=== PATIENT | male | born 1965 | race African-American/Black ===

== ENCOUNTER 2019-05-07 06:32 | Emergency (ER) | payer MEDICAID, OTHER ==
[~2019-05-07] VITALS: Ht 182.9 cm; Wt 82.0 kg
[2019-05-07 08:16] LABS: HEMATOCRIT. 42.5 % (42.0-52.0); HEMOGLOBIN. 14.5 g/dL (14.0-18.0); MEAN CORPUSCULAR HEMOGLOBIN 31.1 pg (28.0-32.0); MEAN CORPUSCULAR VOLUME 91.3 fL (80.0-94.0); MEAN PLATELET VOLUME 7.4 fl (7.4-10.4); PLATELET 237 x1000/uL (130-400); RED BLOOD CELL COUNT 4.66 mill/uL (4.7-6.1); RED CELL DISTRIBUTION WIDTH 14.3 % (11.6-14.6)
[2019-05-07 08:24] LABS: CHLORIDE 106 mEq/L (98-107)
[2019-05-07 08:31] LABS: ETHANOL BLOOD < 10 mg/dL
[2019-05-07 08:42] LABS: PLATELET ESTIMATE NORMAL
[2019-05-07 09:58] VITALS: BP 102/60
== END 2019-05-07 10:02 | disposition home or self-care (01) ==
LOC: ER 06:58
DX: F19.10 Other psychoactive substance abuse, uncomplicated (principal); F16.10 Hallucinogen abuse, uncomplicated
CPT/HCPCS: 36415; 80053; 80320; 85025; 99284; G0480

== ENCOUNTER 2021-03-14 13:40 | Emergency (ER) | payer MEDICAID ==
[~2021-03-14] VITALS: Ht 170.2 cm; Wt 73.0 kg
[2021-03-14 13:42] VITALS: BP 117/84
[2021-03-14] MEDS ORDERED: NALOXONE HCL 0.4 MG/ML 1ML VIAL IV ONE (14:00)
[2021-03-14] MEDS ORDERED: NALOXONE HCL 0.4 MG/ML 1ML VIAL ONE (14:05)
== END 2021-03-14 16:34 | disposition home or self-care (01) ==
LOC: ER 13:40
DX: R45.1 Restlessness and agitation (principal); F16.10 Hallucinogen abuse, uncomplicated; F17.290 Nicotine dependence, other tobacco product, uncomplicated
CPT/HCPCS: 93005; 96374; 99283; J2310